=== PATIENT | female | born 1975 | race African-American/Black ===

== ENCOUNTER 2019-04-08 23:17 | Emergency (ER) | payer BC ==
[2019-04-08] MEDS ORDERED: Sodium Chloride 0.9% 10 ML Syringe FLUSH PRN (23:48)
[2019-04-08] MEDS ORDERED: Sodium Chloride 0.9% 1,000 ML IV ONE (23:48)
[2019-04-08] MEDS ORDERED: Ketorolac 30 MG/ML SDV IVPUSH ONE (23:48)
[2019-04-08] MEDS ORDERED: Sodium Chloride 0.9% 2.5 ML Syringe FLUSH PRN (23:48)
[2019-04-08] MEDS ORDERED: Ondansetron 4 MG/2 ML SDV IVPUSH ONE (23:48)
--- NOTE | 2019-04-08 23:59 | EDM.PDOC ---
ED HPI GENERAL MEDICAL PROBLEM - General Chief Complaint: Abdominal Pain Stated Complaint: VOMITING Time Seen by Provider: 04/08/19 23:47 - History of Present Illness INITIAL COMMENTS - FREE TEXT/NARRATIVE: HISTORY AND PHYSICAL: History of present illness: The patient is a 43-year-old female with a history of a hysterectomy who presents stating that she was diagnosed with gallstones in her gallbladder in [place] and she has been doing relatively well and not having much pain until today about 1:00 when the pain started occurring and has worsened throughout the evening. The patient says she usually tries to watch her diet but for lunch she did eat [place] toast grill cheese that was ruled in bladder and she says the pain started after that and has been progressively worsening. She's had associated nausea and vomiting but no diarrhea and the vomitus is not black or bloody. She's had no loose stools black or bloody stools and no history of peptic ulcer disease. She said she was told to schedule to get her gallbladder removed but she said that because she has not had much symptoms she has been putting it off. She has no chest pain shortness of breath fevers chills or urinary complaints. She was never given any pain medication from her provider in [place] and as always used ibuprofen but did not take anything today. Review of systems: As per history of present illness and below otherwise all systems reviewed and negative. Past medical history: As per history of present illness and as reviewed below otherwise noncontributory. Surgical history: As per history of present illness and as reviewed below otherwise noncontributory. Social history: No reported history of drug or alcohol abuse. Family history: As per history of present illness and as reviewed below otherwise noncontributory. Physical exam: General: Well-developed well-nourished female who is nontoxic and vital signs are noted by me. She looks uncomfortable in the room HEENT: Atraumatic, normocephalic, negative for conjunctival pallor or scleral icterus, mucous membranes moist, throat clear, neck supple, nontender, trachea midline. Lungs: Clear to auscultation, breath sounds equal bilaterally, chest nontender. Heart: S1S2, regular, slightly tachycardic rate of my evaluation but no overt murmurs Abdomen: Soft, nondistended, there is discrete tenderness in the right upper quadrant and epigastrium without rebound or guarding and there is no lower abdominal tenderness, bowel sounds are hypoactive and there is no tympany Negative for masses or hepatosplenomegaly. Negative for costovertebral tenderness. Pelvis: Stable nontender. Genitourinary: Deferred. Rectal: Deferred. Extremities: Atraumatic, negative for cords or calf pain. Neurovascular unremarkable. Neuro: Awake, alert, oriented. Cranial nerves II through XII unremarkable. Cerebellum unremarkable. Motor and sensory unremarkable throughout. Exam nonfocal. Diagnostics: CBC CMP amylase lipase UA with reflex Therapeutics: IV, IV fluids, Zofran, Toradol Dilaudid The patient is aware of testing results and that labs are all within normal limits. At this point we will work to control her pain nausea and vomiting and I recommended that she connect with the clinic in the morning and schedule follow-up to get this taken care of definitively. As she has a known history of gallstones I am not going to repeat ultrasound or CAT scan at this point as she has a known history of gallstones Patient is resting more comfortably and I will plan on referring her to surgery clinic as well as giving her tramadol and Zofran for home. She was also advised on dietary restrictions Impression: Biliary colic with history of gallstones, vomiting improved Definitive disposition and diagnosis as appropriate pending reevaluation and review of above. abdomen Pain Score (Numeric/FACES): 10 - Related Data Allergies Allergy/AdvReac Type Severity Reaction Status Date / Time No Known Allergies Allergy Verified 04/08/19 23:37 Home Meds: Home Meds . 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 ED EXAM, GENERAL - Physical Exam Exam: See Below (See dictation) Course - Vital Signs Last Recorded V/S: Last Vital Signs Temp 35.9 C 04/08/19 23:35 Pulse 81 04/09/19 00:20 Resp 18 04/09/19 00:20 BP 148/64 H 04/09/19 00:20 Pulse Ox 95 04/09/19 00:20 - Orders/Labs/Meds Orders: Active Orders 24 hr Category Date Time Status Sodium Chloride 0.9% [Saline Flush] Med 04/08/19 23:48 Active 10 ml FLUSH ASDIRECTED PRN Sodium Chloride 0.9% [Saline Flush] Med 04/08/19 23:48 Active 2.5 ml FLUSH ASDIRECTED PRN Saline Lock Insert [OM.PC] Stat Oth 04/08/19 23:47 Ordered Medication Orders Sodium Chloride (Saline Flush) 10 ml FLUSH ASDIRECTED PRN PRN Reason: Keep Vein Open Sodium Chloride (Saline Flush) 2.5 ml FLUSH ASDIRECTED PRN PRN Reason: Keep Vein Open Labs: Laboratory Tests 04/08/19 04/08/19 04/09/19 Range/Units 23:42 23:42 00:35 WBC 10.19 (4.0-11.0) K/uL RBC 4.67 (4.30-5.90) M/uL Hgb 13.2 (12.0-16.0) g/dL Hct 41.4 (36.0-46.0) % MCV 88.7 (80.0-98.0) fL MCH 28.3 (27.0-32.0) pg MCHC 31.9 (31.0-37.0) g/dL RDW Std Deviation 46.3 (28.0-62.0) fl RDW Coeff of Aniya 14 (11.0-15.0) % Plt Count 338 (150-400) K/uL MPV 8.60 (7.40-12.00) fL Neut % (Auto) 76.5 (48.0-80.0) % Lymph % (Auto) 19.4 (16.0-40.0) % Teller % (Auto) 3.3 (0.0-15.0) % Eos % (Auto) 0.6 (0.0-7.0) % Baso % (Auto) 0.2 (0.0-1.5) % Neut # (Auto) 7.8 H (1.4-5.7) K/uL Lymph # (Auto) 2.0 (0.6-2.4) K/uL Teller # (Auto) 0.3 (0.0-0.8) K/uL Eos # (Auto) 0.1 (0.0-0.7) K/uL Baso # (Auto) 0.0 (0.0-0.1) K/uL Nucleated RBC % 0.0 /100WBC Nucleated RBCs # 0 K/uL Sodium 139 (136-145) mmol/L Potassium 4.1 (3.5-5.1) mmol/L Chloride 102 (98-107) mmol/L Carbon Dioxide 27.9 (21.0-32.0) mmol/L BUN 14 (7.0-18.0) mg/dL Creatinine 0.8 (0.6-1.0) mg/dL Est Cr Clr Drug Dosing 85.76 mL/min Estimated GFR (MDRD) > 60.0 ml/min Glucose 172 H (74-106) mg/dL Calcium 10.2 H (8.5-10.1) mg/dL Total Bilirubin 0.2 (0.2-1.0) mg/dL AST 18 (15-37) IU/L ALT 21 (14-63) IU/L Alkaline Phosphatase 114 (46-116) U/L Total Protein 9.0 H (6.4-8.2) g/dL Albumin 4.1 (3.4-5.0) g/dL Globulin 4.9 H (2.6-4.0) g/dL Albumin/Globulin Ratio 0.8 L (0.9-1.6) Amylase 57 (25-115) U/L Lipase 60 L (73-393) U/L Urine Color YELLOW Urine Appearance CLEAR Urine pH 6.5 (5.0-8.0) Ur Specific [place] 1.020 (1.001-1.035) Urine Protein NEGATIVE (NEGATIVE) mg/dL Urine Glucose (UA) NEGATIVE (NEGATIVE) mg/dL Urine Ketones NEGATIVE (NEGATIVE) mg/dL Urine Occult Blood TRACE-LYSED H (NEGATIVE) Urine Nitrite NEGATIVE (NEGATIVE) Urine Bilirubin NEGATIVE (NEGATIVE) Urine Urobilinogen 0.2 (<2.0) EU/dL Ur Leukocyte Esterase NEGATIVE (NEGATIVE) Urine RBC 2-5 (0-2/HPF) Urine WBC 0-2 (0-5/HPF) Ur Epithelial Cells FEW (NONE-FEW) Urine Bacteria FEW (NEGATIVE) Urine Mucus LIGHT (NONE-MOD) Meds: Medications Generic Name Dose Route Start Last Admin Trade Name Joselyn PRN Reason Stop Dose Admin Sodium Chloride 10 ml 04/08/19 23:48 Saline Flush FLUSH ASDIRECTED PRN Keep Vein Open Sodium Chloride 2.5 ml 04/08/19 23:48 Saline Flush FLUSH ASDIRECTED PRN Keep Vein Open Discontinued Medications Generic Name Dose Route Start Last Admin Trade Name Joselyn PRN Reason Stop Dose Admin Hydromorphone HCl 1 mg 04/09/19 00:18 04/09/19 00:35 Dilaudid IVPUSH 04/09/19 00:19 1 mg ONETIME ONE Administration Sodium Chloride 1,000 mls @ 999 mls/hr 04/08/19 23:48 04/08/19 23:52 Normal Saline IV 04/09/19 00:48 999 mls/hr STAT ONE Administration Ketorolac Tromethamine 30 mg 04/08/19 23:48 04/08/19 23:56 Toradol IVPUSH 04/08/19 23:49 30 mg ONETIME ONE Administration Ondansetron HCl 4 mg 04/08/19 23:48 04/08/19 23:54 Zofran IVPUSH 04/08/19 23:49 4 mg ONETIME ONE Administration Departure - Departure Time of Disposition: 01:09 Disposition: Home, Self-Care 01 Condition: Good Clinical Impression: Biliary colic Vomiting Qualifiers: Vomiting type: unspecified Vomiting Intractability: non-intractable Nausea presence: with nausea Qualified Code(s): R11.2 - Nausea with vomiting, unspecified - Discharge Information Instructions: Biliary Colic, Adult, Nausea and Vomiting, Adult, [id number] Referrals: PCP,None [Primary Care Provider] - Forms: ED Department Discharge Additional Instructions: The following information is given to patients seen in the emergency department who are being discharged to home. This information is to outline your options for follow-up care. We provide all patients seen in our emergency department with a follow-up referral. The need for follow-up, as well as the timing and circumstances, are variable depending upon the specifics of your emergency department visit. If you don't have a primary care physician on staff, we will provide you with a referral. We always advise you to contact your personal physician following an emergency department visit to inform them of the circumstance of the visit and for follow-up with them and/or the need for any referrals to a consulting specialist. The emergency department will also refer you to a specialist when appropriate. This referral assures that you have the opportunity for followup care with a specialist. All of these measure are taken in an effort to provide you with optimal care, which includes your followup. Under all circumstances we always encourage you to contact your private physician who remains a resource for coordinating your care. When calling for followup care, please make the office aware that this follow-up is from your recent emergency room visit. If for any reason you are refused follow-up, please contact the [facility] emergency department at and ask to speak to the emergency department charge nurse. [facility] Special[facility]-General Surgery Professional Building [address] [place] [id number] Please push clear liquids and eat a bland diet no fat diet as we discussed as any fat ingestion will trigger your gallbladder. Please call and schedule a follow-up appointment in our Gen. surgery clinic to be reevaluated for removal of your gallbladder and further care. Return to ER as needed and as discussed. You have been given tramadol/Voltaren from [facility] to use for pain management as well as Zofran for nausea and vomiting - My Orders Last 24 Hours: My Active Orders 04/08/19 23:47 Saline Lock Insert [OM.PC] Stat 04/08/19 23:48 Sodium Chloride 0.9% [Saline Flush] 10 ml FLUSH ASDIRECTED PRN Sodium Chloride 0.9% [Saline Flush] 2.5 ml FLUSH ASDIRECTED PRN - Assessment/Plan Last 24 Hours: My Active Orders 04/08/19 23:47 Saline Lock Insert [OM.PC] Stat 04/08/19 23:48 Sodium Chloride 0.9% [Saline Flush] 10 ml FLUSH ASDIRECTED PRN Sodium Chloride 0.9% [Saline Flush] 2.5 ml FLUSH ASDIRECTED PRN
[2019-04-09] MEDS ORDERED: HYDROmorphone 1 MG/ML Syringe IVPUSH ONE (00:18)
[2019-04-09 00:19] LABS: CHLORIDE,CL 102 mmol/L (98-107); SODIUM,NA 139 mmol/L (136-145)
== END 2019-04-09 01:20 | disposition home or self-care (01) ==
LOC: MW.ED 23:17
DX: K80.50 Calculus of bile duct without cholangitis or cholecystitis without obstruction (principal); Z90.710 Acquired absence of both cervix and uterus
CPT/HCPCS: 36415; 80053; 81001; 82150; 83690; 85025; 96361; 96374; 96375; 99284; J1170; J1885; J2405; J7040; 99283

== ENCOUNTER 2019-04-10 13:04 | Observation (INO) | payer BC ==
[2019-04-10] MEDS ORDERED: Ondansetron 4 MG/2 ML SDV IVPUSH ONE (13:47)
[2019-04-10] MEDS ORDERED: Sodium Chloride 0.9% 1,000 ML IV ONE (13:47)
[2019-04-10] MEDS ORDERED: Ketorolac 30 MG/ML SDV IVPUSH ONE (13:47)
[2019-04-10] MEDS ORDERED: Morphine 2 MG/ML Syringe IVPUSH ONE (13:56)
--- NOTE | 2019-04-10 14:05 | EDM.PDOC ---
ED HPI GENERAL MEDICAL PROBLEM - General Chief Complaint: General Stated Complaint: GALLBLADDER ATTACK, FEVER Time Seen by Provider: 04/10/19 13:32 Source of Information: Reports: Patient History Limitations: Reports: No Limitations - History of Present Illness INITIAL COMMENTS - FREE TEXT/NARRATIVE: HISTORY AND PHYSICAL: History of present illness: Patient is a 43-year-old female who presents to the ED today with concern of right upper quadrant pain. She was seen in our ED on 04/08/19, 2 days ago, with right upper quadrant pain and was discharged after symptoms had resolved with therapeutics in the ED. Patient states since then she's had worsening right upper quadrant pain and has not been able to eat or drink. Patient states she did try to eat some Jell-O this morning but instantly had pain. Patient states she has an initial consult appointment tomorrow with Dr. Buckner to get her gallbladder removed. Patient has a history of hysterectomy but denies any other health history or abdominal surgeries. Patient states this morning she did have a temperature of 101 and took Motrin which quickly resolved and has not had a fever since. Patient denies chills, chest pain, shortness of breath, or cough. Denies headache, neck stiff ness, change in vision, syncope, or near syncope. Denies vomiting, diarrhea, constipation, or dysuria. Has not noted any blood in urine or stool. Review of systems: As per history of present illness and below otherwise all systems reviewed and negative. Past medical history: As per history of present illness and as reviewed below otherwise noncontributory. Surgical history: As per history of present illness and as reviewed below otherwise noncontributory. Social history: See social history for further information Family history: As per history of present illness and as reviewed below otherwise noncontributory. Physical exam: General: Patient is alert, oriented, and in no acute distress. Patient sitting comfortably on exam table. HEENT: Atraumatic, normocephalic, pupils equal and reactive bilaterally, negative for conjunctival pallor or scleral icterus, mucous membranes moist, TMs normal bilaterally, throat clear, neck supple, nontender, trachea midline. No drooling or trismus noted. No meningeal signs. No hot potato voice noted. Lungs: Clear to auscultation, breath sounds equal bilaterally, chest nontender. Heart: S1S2, regular rate and rhythm without overt murmur Abdomen: Soft, nondistended. Patient has severe right upper quadrant pain with guarding. Positive Casas sign. Negative for masses or hepatosplenomegaly. Negative for costovertebral tenderness. Pelvis: Stable nontender. Genitourinary: Deferred. Rectal: Deferred. Skin: Intact, warm, dry. No lesions or rashes noted. Extremities: Atraumatic, negative for cords or calf pain. Neurovascular unremarkable. Neuro: Awake, alert, oriented. Cranial nerves II through XII unremarkable. Cerebellum unremarkable. Motor and sensory unremarkable throughout. Exam nonfocal. Notes: Dr. Douglass, general surgeon escalation engineer, was consulted on patient and will admit Voices understanding and is agreeable to plan of care. Denies any further questions or concerns at this time. Diagnostics: CBC, CMP, UA, lipase, EKG, right upper quadrant ultrasound, Abd/Pelvic CT Therapeutics: Saline, Toradol, Zofran, morphine Impression: Acute Cholecystitis Plan: 1. Admit to observation to Dr. Douglass/ Definitive disposition and diagnosis as appropriate pending reevaluation and review of above. Abdominal Pain Score (Numeric/FACES): 5 - Related Data Allergies Allergy/AdvReac Type Severity Reaction Status Date / Time No Known Allergies Allergy Verified 04/10/19 13:38 Home Meds: Home Meds . 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 ED EXAM, GENERAL - Physical Exam Exam: See Below (see dictation) Course - Vital Signs Last Recorded V/S: Last Vital Signs Temp 36.2 C 04/10/19 15:26 Pulse 79 04/10/19 16:39 Resp 16 04/10/19 13:38 BP 114/59 L 08/15/19 16:39 Pulse Ox 95 04/10/19 16:39 - Orders/Labs/Meds Orders: Active Orders 24 hr Category Date Time Status Patient Status [ADT] Stat ADT 04/10/19 17:33 Active EKG Documentation Completion [RC] STAT Care 04/10/19 13:56 Active Labs: Laboratory Tests 04/10/19 04/10/19 04/10/19 Range/Units 13:58 13:58 14:00 WBC 13.17 H (4.0-11.0) K/uL RBC 4.19 L (4.30-5.90) M/uL Hgb 11.9 L (12.0-16.0) g/dL Hct 36.8 (36.0-46.0) % MCV 87.8 (80.0-98.0) fL MCH 28.4 (27.0-32.0) pg MCHC 32.3 (31.0-37.0) g/dL RDW Std Deviation 47.6 (28.0-62.0) fl RDW Coeff of Aniya 15 (11.0-15.0) % Plt Count 277 (150-400) K/uL MPV 8.30 (7.40-12.00) fL Neut % (Auto) 82.4 H (48.0-80.0) % Lymph % (Auto) 11.7 L (16.0-40.0) % Daw[place] % (Auto) 5.5 (0.0-15.0) % Eos % (Auto) 0.2 (0.0-7.0) % Baso % (Auto) 0.2 (0.0-1.5) % Neut # (Auto) 10.9 H (1.4-5.7) K/uL Lymph # (Auto) 1.5 (0.6-2.4) K/uL [place] # (Auto) 0.7 (0.0-0.8) K/uL Eos # (Auto) 0.0 (0.0-0.7) K/uL Baso # (Auto) 0.0 (0.0-0.1) K/uL Nucleated RBC % 0.0 /100WBC Nucleated RBCs # 0 K/uL Sodium 137 (136-145) mmol/L Potassium 3.7 (3.5-5.1) mmol/L Chloride 100 (98-107) mmol/L Carbon Dioxide 28.0 (21.0-32.0) mmol/L BUN 16 (7.0-18.0) mg/dL Creatinine 0.9 (0.6-1.0) mg/dL Est Cr Clr Drug Dosing 70.32 mL/min Estimated GFR (MDRD) > 60.0 ml/min Glucose 128 H (74-106) mg/dL Calcium 9.6 (8.5-10.1) mg/dL Total Bilirubin 0.6 (0.2-1.0) mg/dL AST 30 (15-37) IU/L ALT 35 (14-63) IU/L Alkaline Phosphatase 116 (46-116) U/L Total Protein 8.2 (6.4-8.2) g/dL Albumin 3.5 (3.4-5.0) g/dL Globulin 4.7 H (2.6-4.0) g/dL Albumin/Globulin Ratio 0.7 L (0.9-1.6) Lipase 43 L (73-393) U/L Urine Color YELLOW Urine Appearance CLEAR Urine pH 6.0 (5.0-8.0) Ur Specific [place] 1.025 (1.001-1.035) Urine Protein TRACE H (NEGATIVE) mg/dL Urine Glucose (UA) NEGATIVE (NEGATIVE) mg/dL Urine Ketones 15 H (NEGATIVE) mg/dL Urine Occult Blood MODERATE H (NEGATIVE) Urine Nitrite NEGATIVE (NEGATIVE) Urine Bilirubin SMALL H (NEGATIVE) Urine Ictotest NEGATIVE Urine Urobilinogen 1.0 (<2.0) EU/dL Ur Leukocyte Esterase NEGATIVE (NEGATIVE) Urine RBC 5-10 (0-2/HPF) Urine WBC 0-3 (0-5/HPF) Ur Epithelial Cells FEW (NONE-FEW) Urine Bacteria FEW (NEGATIVE) Meds: Medications Discontinued Medications Generic Name Dose Route Start Last Admin Trade Name Freq PRN Reason Stop Dose Admin Sodium Chloride 1,000 mls @ 999 mls/hr 04/10/19 13:47 04/10/19 14:09 Normal Saline IV 04/10/19 14:47 999 mls/hr BOLUS ONE Administration Ketorolac Tromethamine 30 mg 04/10/19 13:47 04/10/19 14:09 Toradol IVPUSH 04/10/19 13:48 30 mg ONETIME ONE Administration Morphine Sulfate 2 mg 04/10/19 13:56 04/10/19 14:09 Morphine IVPUSH 04/10/19 13:57 2 mg ONETIME ONE Administration Ondansetron HCl 4 mg 04/10/19 13:47 04/10/19 14:09 Zofran IVPUSH 04/10/19 13:48 4 mg ONETIME ONE Administration Departure - Departure Time of Disposition: 17:45 Disposition: Refer to Observation Clinical Impression: Acute cholecystitis - Discharge Information - My Orders Last 24 Hours: My Active Orders 04/10/19 13:56 EKG Documentation Completion [RC] STAT - Assessment/Plan Last 24 Hours: My Active Orders 04/10/19 13:56 EKG Documentation Completion [RC] STAT
[2019-04-10 14:45] LABS: CHLORIDE,CL 100 mmol/L (98-107); SODIUM,NA 137 mmol/L (136-145)
--- NOTE | 2019-04-10 16:22 | US ---
INDICATION: Right upper quadrant abdominal pain. COMPARISON: None. TECHNIQUE: Ultrasound examination of right upper quadrant of the abdomen. FINDINGS: Evidence of cholelithiasis. Small amount of free fluid surrounding the gallbladder wall. Positive sonographic Casas`s sign. Nondilated common bile duct measuring 4.7 mm in diameter. The right kidney is measuring 11 cm in the maximum vertical dimension without any obstructive uropathy or perinephric pathology. Liver is measuring 16.8 cm in the maximum vertical dimension. No pancreatic pathology. IMPRESSION: 1. Cholelithiasis. 2. Pericholecystic fluid collections with positive sonographic Casas`s sign indicating acute cholecystitis. 3. Nondilated common bile duct. Dictated by Anabella Trujillo MD @ Apr 10 2019 4:02PM Signed by Dr. Anabella Trujillo @ Apr 10 2019 4:21PM
--- NOTE | 2019-04-10 16:24 | CT ---
INDICATION: Abdominal pain TECHNIQUE: CT abdomen and pelvis without contrast. COMPARISON: None available FINDINGS: Lower chest: Mild right lower lobe subsegmental atelectasis. A 4 mm pleural-based right middle lobe nodule along the minor fissure on image 3, statistically postinflammatory in a patient of this age without high risk factors. Liver: Unremarkable. Spleen: Unremarkable. Pancreas: Unremarkable. Gallbladder and bile ducts: Gallbladder sludge versus poorly calcified layering gallstones with gallbladder wall thickening and edema, and/or pericholecystic fluid, and adjacent stranding. Adrenal glands: Unremarkable. Kidneys: No hydronephrosis or discrete urolithiasis. A 2.2 x 1.1 cm right renal low-density lesion suggestive of a peripelvic cyst. GI tract: A duodenal diverticulum. No bowel obstruction. A normal appendix. Colonic diverticulosis without diverticulitis. Vascular structures: Unremarkable. Lymph nodes: No abnormally enlarged lymph nodes. Subcentimeter retrocrural lymph nodes, nonspecific. Miscellaneous: No significant free fluid or free air. Pelvic Organs: Hysterectomy. No bladder calcifications. Bones: Unremarkable for age. IMPRESSION: Findings consistent with acute cholecystitis. Correlate clinically and with sonography. Colonic diverticulosis without diverticulitis. No appendicitis or bowel obstruction. No obstructive uropathy. Dictated by Henry Meeks MD @ 04/10/2019 4:23:01 PM Please note that all CT scans at this facility use dose modulation, iterative reconstruction, and/or weight-based dosing when appropriate to reduce radiation dose to as low as reasonably achievable. Dictated by: Henry Meeks MD @ 04/10/2019 16:23:40 (Electronically Signed)
--- NOTE | 2019-04-10 18:12 | PCM.SN ---
- Free Text/Narrative Note: pt seen, chart reviewed; plan d/w med team; thanks for the consult; [id number]
[2019-04-10] MEDS ORDERED: Morphine 10 MG/ML Syringe IVPUSH PRN (18:17)
[2019-04-10] MEDS ORDERED: Ondansetron 4 MG/2 ML SDV IVPUSH PRN (18:18)
[2019-04-10] MEDS ORDERED: Levofloxacin/Dextrose 5%-Water 750 MG in Premix Bag 1 BAG IV SCH (18:30)
[2019-04-10] MEDS: Lactated Ringers 1,000 ML IV SCH (18:34)
[2019-04-10] MEDS ORDERED: Acetaminophen 325 MG Tab PO PRN (19:00)
[2019-04-11] MEDS: Lactated Ringers 1,000 ML IV SCH (02:33)
[2019-04-11 06:53] LABS: CHLORIDE,CL 104 mmol/L (98-107); SODIUM,NA 141 mmol/L (136-145)
[2019-04-11] MEDS ORDERED: Pantoprazole 40 MG in Sodium Chloride 0.9% 10 ML IV SCH (09:00)
--- NOTE | 2019-04-11 09:26 | HP ---
DATE OF : 1975 PRIMARY CARE PHYSICIAN: None PCP This is a consult from VIDYA Moss, Emergency Room provider. HISTORY OF PRESENT ILLNESS: The patient is a 43-year-old female, who came to the ER for the second time complaining of a right upper quadrant pain, and workup with ultrasound shows some fluid collection, pericholecystic fluid and gallstones, and the patient remarked the pain is 8/10 on the pain scale. The patient has been seen in the past 3 days ago for similar problem and got a followup appointment with me for surgical consult, and as a matter of fact, it is tomorrow morning. The patient was feeling pain, so she came in today. The patient denied dark urine, denied white stool, and denied jaundice. PAST MEDICAL HISTORY: Significant for no diabetes, MD, CVA, hypertension. PAST SURGICAL HISTORY: Normal vaginal delivery x1. ALLERGIES: Please refer to nursing for details. MEDICATION: Please refer to nursing for details. REVIEW OF SYSTEMS: Same as history of present illness. SOCIAL HISTORY: The patient denies tobacco or alcohol use. PHYSICAL EXAMINATION: GENERAL: A very pleasant lady in no acute distress. HEENT: Normocephalic and atraumatic. Sclerae anicteric. LUNGS: Clear to auscultation. HEART: Regular rate and rhythm. ABDOMEN: Soft, nondistended. No pulsating tender midline abdominal structure. Minimal tenderness at the right upper quadrant. No rebound tenderness. No surgical scar. LABORATORY DATA: With consultation, the white count is 13,000, H and H are 12 and 37, platelet is 280,000. Potassium is 3.7 and TBili is 0.6, AST and ALT are normal at 30 and 35, alk phos of 116. Amylase of 57, lipase 43. UA has some blood and some bacteria. IMPRESSION/PLAN: Ultrasound shows stone and some fluid, maybe it is possible cholecystitis versus symptomatic gallstone, and we will admit the patient for observation, give IV antibiotic, give pain medication, and depends on the progress of the situation, may need surgery urgently or, in a much better case as I explained to the patient, cool down the gallbladder with antibiotic and have surgery in 7 to 10 days. The patient concurs. As always thank you for the kind referral. JENISE / DELORES /[id number]
--- NOTE | 2019-04-11 10:07 | PCM.SURGPN ---
- General Info Date of Service: 04/11/19 - Review of Systems General: Reports: No Symptoms (pain much better) HEENT: Reports: No Symptoms - Patient Data Vitals - Most Recent: Last Vital Signs Temp 98.4 F 04/11/19 07:48 Pulse 96 04/11/19 07:48 Resp 14 04/11/19 07:48 BP 125/66 04/11/19 07:48 Pulse Ox 95 04/11/19 07:48 Weight - Most Recent: 448 lb 6.723 oz I&O - Last 24 Hours: Intake & Output 04/10/19 04/11/19 04/11/19 22:59 06:59 14:59 Intake Total 300 1111 Output Total 1000 Balance 300 111 Lab Results Last 24 Hrs: Laboratory Results - last 24 hr 04/10/19 04/10/19 04/10/19 Range/Units 13:58 13:58 14:00 WBC 13.17 H (4.0-11.0) K/uL RBC 4.19 L (4.30-5.90) M/uL Hgb 11.9 L (12.0-16.0) g/dL Hct 36.8 (36.0-46.0) % MCV 87.8 (80.0-98.0) fL MCH 28.4 (27.0-32.0) pg MCHC 32.3 (31.0-37.0) g/dL RDW Std Deviation 47.6 (28.0-62.0) fl RDW Coeff of Aniya 15 (11.0-15.0) % Plt Count 277 (150-400) K/uL MPV 8.30 (7.40-12.00) fL Neut % (Auto) 82.4 H (48.0-80.0) % Lymph % (Auto) 11.7 L (16.0-40.0) % [place] % (Auto) 5.5 (0.0-15.0) % Eos % (Auto) 0.2 (0.0-7.0) % Baso % (Auto) 0.2 (0.0-1.5) % Neut # (Auto) 10.9 H (1.4-5.7) K/uL Lymph # (Auto) 1.5 (0.6-2.4) K/uL [place] # (Auto) 0.7 (0.0-0.8) K/uL Eos # (Auto) 0.0 (0.0-0.7) K/uL Baso # (Auto) 0.0 (0.0-0.1) K/uL Nucleated RBC % 0.0 /100WBC Nucleated RBCs # 0 K/uL Sodium 137 (136-145) mmol/L Potassium 3.7 (3.5-5.1) mmol/L Chloride 100 (98-107) mmol/L Carbon Dioxide 28.0 (21.0-32.0) mmol/L BUN 16 (7.0-18.0) mg/dL Creatinine 0.9 (0.6-1.0) mg/dL Est Cr Clr Drug Dosing 70.32 mL/min Estimated GFR (MDRD) > 60.0 ml/min Glucose 128 H (74-106) mg/dL Calcium 9.6 (8.5-10.1) mg/dL Total Bilirubin 0.6 (0.2-1.0) mg/dL AST 30 (15-37) IU/L ALT 35 (14-63) IU/L Alkaline Phosphatase 116 (46-116) U/L Total Protein 8.2 (6.4-8.2) g/dL Albumin 3.5 (3.4-5.0) g/dL Globulin 4.7 H (2.6-4.0) g/dL Albumin/Globulin Ratio 0.7 L (0.9-1.6) Lipase 43 L (73-393) U/L Urine Color YELLOW Urine Appearance CLEAR Urine pH 6.0 (5.0-8.0) Ur Specific [place] 1.025 (1.001-1.035) Urine Protein TRACE H (NEGATIVE) mg/dL Urine Glucose (UA) NEGATIVE (NEGATIVE) mg/dL Urine Ketones 15 H (NEGATIVE) mg/dL Urine Occult Blood MODERATE H (NEGATIVE) Urine Nitrite NEGATIVE (NEGATIVE) Urine Bilirubin SMALL H (NEGATIVE) Urine Ictotest NEGATIVE Urine Urobilinogen 1.0 (<2.0) EU/dL Ur Leukocyte Esterase NEGATIVE (NEGATIVE) Urine RBC 5-10 (0-2/HPF) Urine WBC 0-3 (0-5/HPF) Ur Epithelial Cells FEW (NONE-FEW) Urine Bacteria FEW (NEGATIVE) 04/11/19 04/11/19 Range/Units 06:01 06:01 WBC 8.19 (4.0-11.0) K/uL RBC 4.16 L (4.30-5.90) M/uL Hgb 11.8 L (12.0-16.0) g/dL Hct 37.0 (36.0-46.0) % MCV 88.9 (80.0-98.0) fL MCH 28.4 (27.0-32.0) pg MCHC 31.9 (31.0-37.0) g/dL RDW Std Deviation 47.7 (28.0-62.0) fl RDW Coeff of Aniya 15 (11.0-15.0) % Plt Count 237 (150-400) K/uL MPV 8.40 (7.40-12.00) fL Neut % (Auto) 78.9 (48.0-80.0) % Lymph % (Auto) 13.9 L (16.0-40.0) % [place] % (Auto) 5.9 (0.0-15.0) % Eos % (Auto) 1.2 (0.0-7.0) % Baso % (Auto) 0.1 (0.0-1.5) % Neut # (Auto) 6.5 H (1.4-5.7) K/uL Lymph # (Auto) 1.1 (0.6-2.4) K/uL [place] # (Auto) 0.5 (0.0-0.8) K/uL Eos # (Auto) 0.1 (0.0-0.7) K/uL Baso # (Auto) 0.0 (0.0-0.1) K/uL Nucleated RBC % 0.0 /100WBC Nucleated RBCs # 0 K/uL Sodium 141 (136-145) mmol/L Potassium 3.6 (3.5-5.1) mmol/L Chloride 104 (98-107) mmol/L Carbon Dioxide 28.4 (21.0-32.0) mmol/L BUN 13 (7.0-18.0) mg/dL Creatinine 0.8 (0.6-1.0) mg/dL Est Cr Clr Drug Dosing 85.76 mL/min Estimated GFR (MDRD) > 60.0 ml/min Glucose 100 (74-106) mg/dL Calcium 9.5 (8.5-10.1) mg/dL Total Bilirubin 0.5 (0.2-1.0) mg/dL AST 21 (15-37) IU/L ALT 29 (14-63) IU/L Alkaline Phosphatase 116 (46-116) U/L Total Protein 7.7 (6.4-8.2) g/dL Albumin 2.8 L (3.4-5.0) g/dL Globulin 4.9 H (2.6-4.0) g/dL Albumin/Globulin Ratio 0.6 L (0.9-1.6) Lipase (73-393) U/L Urine Color Urine Appearance Urine pH (5.0-8.0) Ur Specific [place] (1.001-1.035) Urine Protein (NEGATIVE) mg/dL Urine Glucose (UA) (NEGATIVE) mg/dL Urine Ketones (NEGATIVE) mg/dL Urine Occult Blood (NEGATIVE) Urine Nitrite (NEGATIVE) Urine Bilirubin (NEGATIVE) Urine Ictotest Urine Urobilinogen (<2.0) EU/dL Ur Leukocyte Esterase (NEGATIVE) Urine RBC (0-2/HPF) Urine WBC (0-5/HPF) Ur Epithelial Cells (NONE-FEW) Urine Bacteria (NEGATIVE) Med Orders - Current: Current Medications Acetaminophen (Tylenol) 650 mg PO Q6H PRN PRN Reason: Pain Last Admin: 04/10/19 19:30 Dose: 650 mg Lactated Ringer's (Ringers, Lactated) 1,000 mls @ 125 mls/hr IV ASDIRECTED [facility] Last Admin: 04/11/19 02:33 Dose: 125 mls/hr Levofloxacin/Dextrose 750 mg/ (Premix) 150 mls @ 100 mls/hr IV Q24H [facility] Last Admin: 04/10/19 19:04 Dose: 100 mls/hr Pantoprazole Sodium 40 mg/ (Sodium Chloride) 10 mls @ 300 mls/hr IV DAILY [facility] Last Admin: 04/11/19 09:07 Dose: 300 mls/hr Morphine Sulfate (Morphine) 3 mg IVPUSH Q4H PRN PRN Reason: Pain Ondansetron HCl (Zofran) 4 mg IVPUSH Q8H PRN PRN Reason: Nausea/Vomiting Discontinued Medications Sodium Chloride (Normal Saline) 1,000 mls @ 999 mls/hr IV BOLUS ONE Stop: 04/10/19 14:47 Last Admin: 04/10/19 14:09 Dose: 999 mls/hr Ketorolac Tromethamine (Toradol) 30 mg IVPUSH ONETIME ONE Stop: 04/10/19 13:48 Last Admin: 04/10/19 14:09 Dose: 30 mg Morphine Sulfate (Morphine) 2 mg IVPUSH ONETIME ONE Stop: 04/10/19 13:57 Last Admin: 04/10/19 14:09 Dose: 2 mg Ondansetron HCl (Zofran) 4 mg IVPUSH ONETIME ONE Stop: 04/10/19 13:48 Last Admin: 04/10/19 14:09 Dose: 4 mg - Exam GI/Abdominal Exam: Normal Bowel Sounds, Soft - Problem List Review Problem List Initiated/Reviewed/Updated: Yes - My Orders Last 24 Hours: Active Orders 24 hr Category Date Time Status Admission Status [Patient Status] [ADT] Routine ADT 04/10/19 18:13 Active Patient Status [ADT] Stat ADT 04/10/19 17:33 Active Low Fat Diet [DIET] Diet 04/11/19 Lunch Ordered Nothing per Oral After Midnight Diet [DIET] Diet 04/11/19 Breakfast Active Acetaminophen [Tylenol] Med 04/10/19 19:00 Active 650 mg PO Q6H PRN Lactated Ringers [Ringers, Lactated] 1,000 ml Med 04/10/19 18:15 Active IV ASDIRECTED Levofloxacin/Dextrose 5%-Water [Levaquin in D5W 750 MG/ Med 04/10/19 18:30 Active 150 ML] 750 mg Premix Bag 1 bag IV Q24H Morphine Med 04/10/19 18:17 Active 3 mg IVPUSH Q4H PRN Ondansetron [Zofran] Med 04/10/19 18:18 Active 4 mg IVPUSH Q8H PRN Pantoprazole [ProTONIX IV] 40 mg Med 04/11/19 09:00 Active Sodium Chloride 0.9% [Normal Saline] 10 ml IV DAILY Medication Orders Acetaminophen (Tylenol) 650 mg PO Q6H PRN PRN Reason: Pain Last Admin: 04/10/19 19:30 Dose: 650 mg Lactated Ringer's (Ringers, Lactated) 1,000 mls @ 125 mls/hr IV ASDIRECTED [facility] Last Admin: 04/11/19 02:33 Dose: 125 mls/hr Infusion: 04/11/19 02:33 Dose: 125 mls/hr Admin: 04/10/19 18:34 Dose: 125 mls/hr Levofloxacin/Dextrose 750 mg/ (Premix) 150 mls @ 100 mls/hr IV Q24H [facility] Last Admin: 04/10/19 19:04 Dose: 100 mls/hr Pantoprazole Sodium 40 mg/ (Sodium Chloride) 10 mls @ 300 mls/hr IV DAILY [facility] Last Admin: 04/11/19 09:07 Dose: 300 mls/hr Morphine Sulfate (Morphine) 3 mg IVPUSH Q4H PRN PRN Reason: Pain Ondansetron HCl (Zofran) 4 mg IVPUSH Q8H PRN PRN Reason: Nausea/Vomiting - Assessment Assessment (Free Text/Narrative):: doing much better, responded to iv abx; would start on po levaquin X 3 days; fu appointment w a general surgeon 1 - 2 wks; avoid fatty food till seen by surgeon - Plan Plan (Free Text/Narrative):: doing much better, responded to iv abx; would start on po levaquin X 3 days; fu appointment w a general surgeon 1 - 2 wks; avoid fatty food till seen by surgeon
== END 2019-04-11 12:30 | disposition home or self-care (01) ==
LOC: MW.ED 13:04 → MW.MS 17:53
PROVIDERS: ADMIT Surgery; ATTEND Surgery
DX: K80.00 Calculus of gallbladder with acute cholecystitis without obstruction (principal)
CPT/HCPCS: 36415; 74176; 76705; 80053; 81001; 83690; 85025; 93005; 96361; 96374; 96375; 99285; A9270; C9113; J1885; J1956; J2270; J2405; J7040; J7050; J7120; G0378